=== PATIENT | female | born 1940 | race Two or more races ===

== ENCOUNTER 2017-01-10 17:31 | Inpatient (IN) | payer OTHER, MEDICAID ==
[~2017-01-10] VITALS: Ht 157.5 cm; Wt 90.3 kg
[~2017-01-10 17:31] MED LIST: AMLO10TA2 PO; INSULIN
[2017-01-10 18:22] LABS: Basophils # (auto) 0 uL; Basophils % (auto) 0.2 % (0.0-2.0); CONDITION Y; Eosinophils # (auto) 0.1 uL; Eosinophils % (auto) 0.3 % (0.0-7.0); Hematocrit 41.1 % (36.0-46.0); Hemoglobin 13.5 g/dL (12.2-16.2); Lymphocytes # (auto) 3.3 uL; Mean Corpuscular Hemoglobin 27.8 pg (28.0-32.0); Mean Corpuscular Hgb Conc. 32.8 g/dL (32.0-36.0); Mean Corpuscular Volume 84.7 fL (80.0-100.0); Mean Platelet Volume 10.3 fL (7.4-10.4); Monocytes # (auto) 0.7 uL; Monocytes % (auto) 4.2 % (0.0-12.0); Neutrophils # (auto) 13.2 uL; Neutrophils % (auto) 76.3 % (37.0-80.0); Platelet Count (auto) 390 10^3/uL (140-450); Red Cell Distribution Width 15.4 % (11.6-16.0); White Blood Cell 17.3 10^3/uL (4.4-10.8)
[2017-01-10 18:31] LABS: Albumin 3.6 g/dL (3.4-5.0); Anion Gap 10 (5-15); Aspartate Aminotransferase 19 U/L (15-37); BUN/Creatinine Ratio 24.8; Blood Urea Nitrogen 30 mg/dL (7-18); Calcium 9.1 mg/dL (8.5-10.1); Carbon Dioxide 25 mmol/L (21-32); Chloride 105 mmol/L (98-107); GFR African American 56 mL/min; GFR Non-African American 46 mL/min; Glucose 293 mg/dL (74-106); Magnesium 2.5 mg/dL (1.6-2.6); Potassium 4.6 mmol/L (3.5-5.1); Sodium 140 mmol/L (136-145)
[2017-01-10 18:36] LABS: Alkaline Phosphatase 111 U/L (45-117); Bilirubin, Total 0.5 mg/dL (0.2-1.0); Total Protein 7.3 g/dL (6.4-8.2)
[2017-01-11] MEDS ORDERED: ONDANSETRON HCL 4 MG/2 ML VIAL IV ONE (01:30)
[2017-01-11] MEDS ORDERED: SODIUM CHLORIDE 0.9% 1,000 ML IV ONE (01:30)
[2017-01-11] MEDS ORDERED: MORPHINE SULF INJ 2 MG/ML SYRINGE 1ML IV ONE (01:30)
[2017-01-11] MEDS ORDERED: metroNIDAZOLE 500MG/100ML 100 ML IV ONE ×2 (06:30)
[2017-01-11] MEDS ORDERED: MORPHINE SULF INJ 2 MG/ML SYRINGE 1ML IV PRN (08:00)
[2017-01-11] MEDS ORDERED: NITROGLYCERIN 0.4 MG SL TAB SL PRN (08:00)
[2017-01-11] MEDS ORDERED: ONDANSETRON HCL 4 MG/2 ML VIAL IV PRN (08:15)
[2017-01-11] MEDS ORDERED: DEXTROSE (50%) 50ML SYRG IV PRN (08:15)
[2017-01-11] MEDS ORDERED: GABA-497 PO (08:16)
[2017-01-11] MEDS ORDERED: ESCI20TA51 PO (08:16)
[2017-01-11] MEDS: SOD CHL 0.45% 1,000 ML IV SCH ×2 (08:40→21:20)
[2017-01-11 08:41] LABS: Basophils # (auto) 0.1 uL; Basophils % (auto) 0.4 % (0.0-2.0); CONDITION Y; Eosinophils # (auto) 0.1 uL; Eosinophils % (auto) 0.7 % (0.0-7.0); Hematocrit 35.3 % (36.0-46.0); Hemoglobin 11.7 g/dL (12.2-16.2); Lymphocytes # (auto) 4.4 uL; Mean Corpuscular Hemoglobin 28.2 pg (28.0-32.0); Mean Corpuscular Hgb Conc. 33.1 g/dL (32.0-36.0); Mean Corpuscular Volume 85.2 fL (80.0-100.0); Mean Platelet Volume 9.9 fL (7.4-10.4); Monocytes # (auto) 1.2 uL; Monocytes % (auto) 7.2 % (0.0-12.0); Neutrophils % (auto) 65.7 % (37.0-80.0); Platelet Count (auto) 307 10^3/uL (140-450); White Blood Cell 16.8 10^3/uL (4.4-10.8)
[2017-01-11 08:58] LABS: Albumin 3.1 g/dL (3.4-5.0); BUN/Creatinine Ratio 25.9; Bilirubin, Total 0.4 mg/dL (0.2-1.0); Potassium 4.5 mmol/L (3.5-5.1); Total Protein 6.3 g/dL (6.4-8.2)
[2017-01-11 09:04] LABS: INR 0.96 (0.9-1.15); Prothrombin Time 10.5 sec (9.37-12.3)
[2017-01-11] MEDS ORDERED: CIPROFLOXACIN 400MG/200ML 200 ML IV SCH (10:00)
[2017-01-11] MEDS ORDERED: PATIENTS OWN MEDICATION (Amlodipine Besylate 1 TAB) PO SCH ×2 (10:00)
[2017-01-11] MEDS ORDERED: metroNIDAZOLE 500MG/100ML 100 ML IV SCH ×2 (10:00→12:00)
[2017-01-11 10:09] LABS: Urine Bilirubin Negative (Negative); Urine Blood TRACE /uL (Negative); Urine Color Yellow (Yellow); Urine Glucose 2+ mg/dL (Normal); Urine Ketone TRACE (Negative); Urine Nitrite Negative (Negative); Urine RBC 42 /hpf (0 - 4); Urine Squamous Epithelial Cell MOD /hpf (<5)
[2017-01-11] MEDS: metroNIDAZOLE 500MG/100ML 100 ML IV SCH ×2 (10:30→21:59)
[2017-01-11] MEDS: amLODIPine BESYLATE 5 MG TAB PO SCH (10:30)
[2017-01-11] MEDS: InsuLIN REG 1unit/0.01ml Soln (100units/ml) SC SCH ×3 (12:00→23:57)
[2017-01-11] MEDS: ACCU-CHEK COMFORT CURVE STRIP VI SCH ×3 (12:00→23:58)
[2017-01-11] MEDS ORDERED: INSU100I4 SC ×2 (13:24)
[2017-01-11 17:26] VITALS: BP 131/58
[2017-01-11 18:00] LABS: Basophils # (auto) 0 uL; Basophils % (auto) 0.3 % (0.0-2.0); CONDITION Y; Eosinophils # (auto) 0.2 uL; Eosinophils % (auto) 1.3 % (0.0-7.0); Hemoglobin 12.5 g/dL (12.2-16.2); Lymphocytes # (auto) 3.9 uL; Lymphocytes % (auto) 26.9 % (10.0-50.0); Mean Corpuscular Hemoglobin 28.1 pg (28.0-32.0); Mean Corpuscular Hgb Conc. 32.9 g/dL (32.0-36.0); Mean Corpuscular Volume 85.4 fL (80.0-100.0); Mean Platelet Volume 9.6 fL (7.4-10.4); Monocytes % (auto) 6.8 % (0.0-12.0); Neutrophils # (auto) 9.3 uL; Neutrophils % (auto) 64.7 % (37.0-80.0); Platelet Count (auto) 346 10^3/uL (140-450); Red Cell Distribution Width 15.1 % (11.6-16.0); White Blood Cell 14.4 10^3/uL (4.4-10.8)
[2017-01-11] MEDS: CIPROFLOXACIN 400MG/200ML 200 ML IV SCH ×2 (18:07→23:51)
[2017-01-11 22:00] VITALS: BP 137/57
[2017-01-12 05:00] VITALS: BP 131/57
[2017-01-12 05:27] LABS: BUN/Creatinine Ratio 25.7; Calcium 7.7 mg/dL (8.5-10.1); Magnesium 2.4 mg/dL (1.6-2.6); Potassium 3.9 mmol/L (3.5-5.1)
[2017-01-12] MEDS: ACCU-CHEK COMFORT CURVE STRIP VI SCH ×2 (05:47→12:00)
[2017-01-12] MEDS: InsuLIN REG 1unit/0.01ml Soln (100units/ml) SC SCH ×2 (05:47→12:00)
[2017-01-12 05:48] LABS: Basophils # (auto) 0 uL; Basophils % (auto) 0.3 % (0.0-2.0); CONDITION Y; Eosinophils # (auto) 0.3 uL; Eosinophils % (auto) 2.3 % (0.0-7.0); Hematocrit 36.6 % (36.0-46.0); Lymphocytes # (auto) 3.3 uL; Lymphocytes % (auto) 26.9 % (10.0-50.0); Mean Corpuscular Hemoglobin 28.2 pg (28.0-32.0); Mean Corpuscular Hgb Conc. 32.8 g/dL (32.0-36.0); Mean Corpuscular Volume 86.1 fL (80.0-100.0); Mean Platelet Volume 10.1 fL (7.4-10.4); Monocytes # (auto) 0.9 uL; Monocytes % (auto) 7.5 % (0.0-12.0); Neutrophils # (auto) 7.8 uL; Platelet Count (auto) 270 10^3/uL (140-450); Red Cell Distribution Width 15.1 % (11.6-16.0); White Blood Cell 12.3 10^3/uL (4.4-10.8)
[2017-01-12 08:00] VITALS: BP 137/69
[2017-01-12] MEDS: metroNIDAZOLE 500MG/100ML 100 ML IV SCH (10:09)
[2017-01-12] MEDS: amLODIPine BESYLATE 5 MG TAB PO SCH (10:10)
[2017-01-12] MEDS: SOD CHL 0.45% 1,000 ML IV SCH (10:40)
[2017-01-12 12:00] VITALS: BP 163/70
[2017-01-12 14:16] VITALS: BP 137/69
== END 2017-01-12 15:50 | disposition home health service (06) | DRG 388 ==
LOC: ER 17:34 → OVERFLOW 17:35 → EAST 01-11 12:02 → CENTRAL 01-11 14:20
PROVIDERS: ADMIT Internal Medicine; ATTEND Internal Medicine
DX: K56.7 Ileus, unspecified (principal); N17.0 Acute kidney failure with tubular necrosis; N39.0 Urinary tract infection, site not specified; K52.9 Noninfective gastroenteritis and colitis, unspecified; N18.3 Chronic kidney disease, stage 3 (moderate); E11.22 Type 2 diabetes mellitus with diabetic chronic kidney disease; F03.90 Unspecified dementia, unspecified severity, without behavioral disturbance, psychotic disturbance, mood disturbance, and anxiety; E11.40 Type 2 diabetes mellitus with diabetic neuropathy, unspecified; E11.65 Type 2 diabetes mellitus with hyperglycemia; E86.0 Dehydration; F32.9 Major depressive disorder, single episode, unspecified; I12.9 Hypertensive chronic kidney disease with stage 1 through stage 4 chronic kidney disease, or unspecified chronic kidney disease; K44.9 Diaphragmatic hernia without obstruction or gangrene; M81.0 Age-related osteoporosis without current pathological fracture; F41.9 Anxiety disorder, unspecified; G89.29 Other chronic pain; M54.9 Dorsalgia, unspecified; Z79.4 Long term (current) use of insulin; Z79.899 Other long term (current) drug therapy; Z82.49 Family history of ischemic heart disease and other diseases of the circulatory system; Z83.3 Family history of diabetes mellitus; Z86.73 Personal history of transient ischemic attack (TIA), and cerebral infarction without residual deficits; Z90.49 Acquired absence of other specified parts of digestive tract; Z90.710 Acquired absence of both cervix and uterus
CPT/HCPCS: 36415; 71010; 74176; 80048; 80053; 81001; 82270; 82962; 83036; 83690; 83735; 84484; 85025; 85610; 93005; 94761; 96361; 96365; 96366; 96375; J1815; J2405; J3490

== ENCOUNTER 2018-05-01 07:29 | Emergency (ER) | payer MEDICARE, MEDICAID ==
[~2018-05-01] VITALS: Ht 162.6 cm; Wt 68.0 kg
[~2018-05-01 07:29] MED LIST changes: +AMLO10TA12 PO; -AMLO10TA2 PO; +ESCI20TA51 PO; +GABA300C10 PO; +INSU100I4 SC; -INSULIN
[2018-05-01] MEDS ORDERED: ALPRAZolam 0.5 MG TAB PO ONE (08:15)
[2018-05-01 08:55] LABS: Basophils # (auto) 0.1 uL; Basophils % (auto) 0.5 % (0.0-2.0); Eosinophils # (auto) 0.2 uL; Eosinophils % (auto) 1.4 % (0.0-7.0); Hematocrit 41.1 % (36.0-46.0); Hemoglobin 13.5 g/dL (12.2-16.2); Lymphocytes # (auto) 3.5 uL; Lymphocytes % (auto) 31.8 % (10.0-50.0); Mean Corpuscular Hemoglobin 28.4 pg (28.0-32.0); Mean Corpuscular Hgb Conc. 32.8 g/dL (32.0-36.0); Mean Corpuscular Volume 86.4 fL (80.0-100.0); Monocytes # (auto) 0.8 uL; Monocytes % (auto) 6.9 % (0.0-12.0); Neutrophils # (auto) 6.5 uL; Neutrophils % (auto) 59.4 % (37.0-80.0); Platelet Count (auto) 283 10^3/uL (140-450); Red Blood Cells 4.76 10^6/uL (4.0-5.20); Red Cell Distribution Width 14.5 % (11.8-14.3); White Blood Cell 10.9 10^3/uL (4.4-10.8)
[2018-05-01 09:11] LABS: Urine Bacteria NONE SEEN /hpf (None Seen); Urine Blood Negative /uL (Negative); Urine WBC <1 /hpf (0 - 5)
[2018-05-01 09:13] LABS: Albumin 3.8 g/dL (3.4-5.0); Anion Gap 6 (5-15); Blood Urea Nitrogen 13 mg/dL (7-18); Calcium 9.3 mg/dL (8.5-10.1); Carbon Dioxide 26 mmol/L (21-32); Chloride 109 mmol/L (98-107); Glucose 106 mg/dL (74-106); Magnesium 2.5 mg/dL (1.6-2.6); Potassium 4.9 mmol/L (3.5-5.1); Sodium 141 mmol/L (136-145)
[2018-05-01 09:14] LABS: BUN/Creatinine Ratio 16.7; GFR African American 92 mL/min; GFR Non-African American 76 mL/min
[2018-05-01 09:26] LABS: Alanine Aminotransferase 26 U/L (13-56); Alkaline Phosphatase 130 U/L (45-117); Aspartate Aminotransferase 20 U/L (15-37); Bilirubin, Total 0.4 mg/dL (0.2-1.0); Total Protein 7.5 g/dL (6.4-8.2)
[2018-05-01 10:08] VITALS: BP 111/52
== END 2018-05-01 11:17 | disposition home or self-care (01) ==
LOC: EDBD 07:29 → ER 07:31
DX: F43.21 Adjustment disorder with depressed mood (principal); E03.9 Hypothyroidism, unspecified; F41.8 Other specified anxiety disorders; F32.9 Major depressive disorder, single episode, unspecified; E11.9 Type 2 diabetes mellitus without complications; I10 Essential (primary) hypertension; Z90.49 Acquired absence of other specified parts of digestive tract; Z79.4 Long term (current) use of insulin; Z79.899 Other long term (current) drug therapy; Z86.73 Personal history of transient ischemic attack (TIA), and cerebral infarction without residual deficits; Z90.710 Acquired absence of both cervix and uterus
CPT/HCPCS: 36415; 71046; 80053; 81001; 83735; 84443; 84484; 85025; 93005

== ENCOUNTER 2018-08-21 09:54 | Emergency (ER) | payer MEDICARE, MEDICAID ==
[~2018-08-21] VITALS: Ht 160 cm; Wt 68.0 kg
[2018-08-21 10:33] LABS: Urine WBC None Seen /hpf (0 - 5)
[2018-08-21 11:14] LABS: Basophils # (auto) 0.1 uL; Basophils % (auto) 0.7 % (0.0-2.0); Eosinophils # (auto) 0.1 uL; Eosinophils % (auto) 0.9 % (0.0-7.0); Hematocrit 42.6 % (36.0-46.0); Lymphocytes # (auto) 2.5 uL; Lymphocytes % (auto) 21.8 % (10.0-50.0); Mean Corpuscular Hemoglobin 28.5 pg (28.0-32.0); Mean Corpuscular Hgb Conc. 32.7 g/dL (32.0-36.0); Mean Corpuscular Volume 87.2 fL (80.0-100.0); Monocytes # (auto) 0.6 uL; Monocytes % (auto) 5.2 % (0.0-12.0); Neutrophils % (auto) 71.4 % (37.0-80.0); Platelet Count (auto) 231 10^3/uL (140-450); Red Blood Cells 4.89 10^6/uL (4.0-5.20); Red Cell Distribution Width 13.8 % (11.8-14.3); White Blood Cell 11.3 10^3/uL (4.4-10.8)
[2018-08-21 11:19] LABS: Alanine Aminotransferase 27 U/L (13-56); Albumin 3.9 g/dL (3.4-5.0); Anion Gap 6 (5-15); Aspartate Aminotransferase 21 U/L (15-37); BUN/Creatinine Ratio 19.8; Blood Urea Nitrogen 17 mg/dL (7-18); Calcium 9.3 mg/dL (8.5-10.1); Carbon Dioxide 26 mmol/L (21-32); Chloride 107 mmol/L (98-107); GFR African American 83 mL/min; GFR Non-African American 68 mL/min; Glucose 172 mg/dL (74-106); Potassium 4.1 mmol/L (3.5-5.1); Sodium 139 mmol/L (136-145)
[2018-08-21 11:24] LABS: Alkaline Phosphatase 156 U/L (45-117); Bilirubin, Total 0.6 mg/dL (0.2-1.0); Total Protein 7.5 g/dL (6.4-8.2)
[2018-08-21 11:26] LABS: Urine Bacteria FEW /hpf (None Seen); Urine Blood Negative /uL (Negative); Urine Budding Yeast MODERATE /hpf (None Seen); Urine Specific Gravity 1.009 (1.001-1.035)
[2018-08-21] MEDS ORDERED: SODIUM CHLORIDE 0.9% 500 ML IVB ONE (11:44)
[2018-08-21] MEDS ORDERED: SODIUM CHLORIDE 0.9% 1,000 ML IV ONE (11:44)
[2018-08-21] MEDS ORDERED: FUROSEMIDE 20 MG/2 ML VIAL IV ONE (11:45)
[2018-08-21] MEDS ORDERED: LORazepam 2MG/ML-1ML VIAL IV ONE (11:45)
[2018-08-21] MEDS ORDERED: MECLIZINE HCL 25 MG TAB PO ONE (11:45)
[2018-08-21 16:30] VITALS: BP 130/72
== END 2018-08-21 16:56 | disposition home or self-care (01) ==
LOC: ER 09:54 → EDBD 09:54 → ER 16:56
DX: R42 Dizziness and giddiness (principal); F32.9 Major depressive disorder, single episode, unspecified; E11.65 Type 2 diabetes mellitus with hyperglycemia; R45.851 Suicidal ideations; I10 Essential (primary) hypertension; F41.9 Anxiety disorder, unspecified; Z86.73 Personal history of transient ischemic attack (TIA), and cerebral infarction without residual deficits; Z98.51 Tubal ligation status; Z90.710 Acquired absence of both cervix and uterus; Z90.49 Acquired absence of other specified parts of digestive tract
CPT/HCPCS: 36415; 70450; 71045; 80053; 81001; 83735; 84484; 85025; 93005; 94761; 96361; 96374; 96375; 99284; J1940; J2060; J7030; J7040; J8597

== ENCOUNTER 2019-12-29 02:19 | Inpatient (IN) | payer OTHER, MEDICAID ==
[~2019-12-29] VITALS: Ht 157.5 cm; Wt 70.1 kg
[~2019-12-29 02:19] MED LIST changes: -AMLO10TA12 PO; +AMLO10TA13 PO
[2019-12-29 03:30] LABS: Basophils # (auto) 0.1 10 ^3/uL (0-0.2); Basophils % (auto) 0.7 % (0.0-2.0); Eosinophils # (auto) 0.1 10 ^3/uL (0-0.8); Eosinophils % (auto) 1.4 % (0.0-7.0); Hematocrit 38.6 % (36.0-46.0); Hemoglobin 12.8 g/dL (12.2-16.2); Lymphocytes # (auto) 2.8 10 ^3/uL (0.4-5.4); Lymphocytes % (auto) 28.3 % (10.0-50.0); Mean Corpuscular Hemoglobin 28.8 pg (28.0-32.0); Mean Corpuscular Hgb Conc. 33.3 g/dL (32.0-36.0); Mean Corpuscular Volume 86.6 fL (80.0-100.0); Monocytes # (auto) 0.8 10 ^3/uL (0-1.3); Monocytes % (auto) 7.6 % (0.0-12.0); Neutrophils # (auto) 6.2 10 ^3/uL (1.6-8.6); Nucleated Red Blood Cells % 0.2 %; Platelet Count (auto) 268 10^3/uL (140-450); Red Blood Cells 4.45 10^6/uL (4.0-5.20); Red Cell Distribution Width 13.4 % (11.8-14.3)
[2019-12-29 03:47] LABS: Albumin 3.6 g/dL (3.4-5.0); Potassium 3.9 mmol/L (3.5-5.1)
[2019-12-29 03:50] LABS: BUN/Creatinine Ratio 15.3; Bilirubin, Total 0.4 mg/dL (0.2-1.0); Total Protein 7.5 g/dL (6.4-8.2)
[2019-12-29] MEDS ORDERED: SODIUM CHLORIDE 0.9% 1,000 ML IV ONE (05:30)
[2019-12-29] MEDS ORDERED: InsuLIN REG 1unit/0.01ml Soln (100units/ml) IV ONE (05:30)
[2019-12-29] MEDS ORDERED: HYDROcodone-ACET 5/325MG TAB PO PRN (05:45)
[2019-12-29] MEDS ORDERED: DOCUSATE SOD 100 MG CAP PO PRN (05:45)
[2019-12-29] MEDS ORDERED: ONDANSETRON HCL 4 MG/2 ML VIAL IV PRN (05:45)
[2019-12-29] MEDS ORDERED: ACETAMINOPHEN 325 MG TAB PO PRN (05:45)
[2019-12-29] MEDS ORDERED: DEXTROSE (50%) 50ML SYRG IV PRN (05:45)
[2019-12-29] MEDS ORDERED: TRAZ100T3 PO (10:19)
[2019-12-29] MEDS ORDERED: OXCA150T3 PO (10:19)
[2019-12-29] MEDS ORDERED: CHOL200021 PO (10:19)
[2019-12-29] MEDS ORDERED: MEMA1TAB3 PO (10:19)
[2019-12-29] MEDS ORDERED: OXYB5TAB61 PO (10:19)
[2019-12-29] MEDS ORDERED: ASPI-266 PO (10:19)
[2019-12-29] MEDS ORDERED: BUPR100T14 PO (10:19)
[2019-12-29] MEDS ORDERED: ALEN1TAB32 PO (10:19)
[2019-12-29] MEDS ORDERED: GLIM-5 PO (10:19)
[2019-12-29] MEDS ORDERED: DONE10TA40 PO (10:20)
[2019-12-29] MEDS: ACCU-CHEK COMFORT CURVE STRIP VI SCH ×4 (10:22→20:15)
[2019-12-29] MEDS ORDERED: CYAN1TAB14 PO (10:24)
[2019-12-29] MEDS ORDERED: ASCO100076 PO (10:24)
[2019-12-29] MEDS ORDERED: FOLI400T34 PO (10:24)
[2019-12-29] MEDS: InsuLIN REG 1unit/0.01ml Soln (100units/ml) SC SCH ×4 (10:26→20:00)
[2019-12-29] MEDS: SODIUM CHLORIDE 0.9% 1,000 ML IV SCH ×3 (10:28→16:10)
--- NOTE | 2019-12-29 14:39 | NUR ---
MS admit from ER CAROLE VIVAR M admitted to tele/MS after SBAR received.came in with chief c/o Hyperglycemia,uncontrolled diabetes.Awake,alert,oriented no distress no discomfort.IV heplocl toleft AC g#20.Patient oriented to primary RN, unit, room, bed, and unit policies regarding patient care and visiting hours. Patient weighed by bedscale and encouraged to call if they need something. All questions and concerns addressed, patient verbalized understanding.
--- NOTE | 2019-12-29 15:30 | NUR ---
MD VISIT DR. RECINOS[PRICK HERE TO SEE AND EXAMINED PATIENT RECEIVED ORDERS
--- NOTE | 2019-12-29 15:44 | NUR ---
CLARIFIED WITH DR. NETTLES RE IVF RATE OF 200CC/HR,RECEIVED ORDER TO DECREASED RATE TO 100 CC/HR
[2019-12-29] MEDS ORDERED: cefTRIAXone 1GM/50ML D5W 50 ML IV ONE (15:45)
[2019-12-29] MEDS ORDERED: PAR20T GT (15:46)
--- NOTE | 2019-12-29 16:00 | NUR ---
SPECIMEN CUP PROVIDED INSTRUCTED OF NEEDING URINE SPECIMEN WHEN AVAILABLE,VERBALIZED UNDERSTANDING.
--- NOTE | 2019-12-29 16:10 | NUR ---
BLOOD SUGAR 55,ASYMPTOMATIC,N DIAPHORESIS OR DIZZINESS, PATIENT GIVEN 2, 8 OZ. OF ORANGE JUICE,INSTRUCTED TO FINISH
--- NOTE | 2019-12-29 16:50 | NUR ---
VITAL SIGNS TAKEN BP 134/85,ROOM AIR SAT 96%,RR18,HR86,TEMP:99.0
[2019-12-29 17:00] VITALS: BP 134/85
--- NOTE | 2019-12-29 19:19 | NUR ---
STATUS UNCHANGED,REPORT AND CONTINUATION OF CARE GIVEN TO INCOMING NOC SHIFT RN.
--- NOTE | 2019-12-29 21:00 | NUR ---
pt IV removed per request. Site red, no swelling noted. Pt is declining new IV at tis time. Will attempt shortly
[2019-12-29 22:00] VITALS: BP 161/89
--- NOTE | 2019-12-29 23:30 | NUR ---
pt admitted on day shift but nurse was unable to chart any of her belongings. pt had 5 rings (yellow metal) one with white stones, 2 chains one whit metal with whit medal crucifix, the other yellow metal with yellow metal crucifix, 4 pairs of earing, 3 pair yellow metal hoops and one white metal with various colored stones, 4 bracelets, 2 yellow metal and 2 white metal. pt had id cards and a check book. Pt did not want this keno writer / runner to lock any of her belongings in the safe. Charge nurse notified, and is aware that pt is keeping all of her belongings at bedside. Pt had several quarters but did not want this keno writer / runner to look and no other money noted. property sheet filled out and signed by pt and this keno writer / runner.
[2019-12-30 00:09] LABS: Urine Bacteria MOD /hpf (None Seen); Urine Budding Yeast MANY /hpf (None Seen); Urine WBC 85 /hpf (0 - 5)
[2019-12-30 00:10] LABS: Urine Blood TRACE /uL (Negative)
[2019-12-30 00:19] LABS: Amphetamine Screen, Urine NEGATIVE (NEGATIVE); Barbiturate Scree,Urine NEGATIVE (NEGATIVE); Benzodiazephine Screen, Urine NEGATIVE (NEGATIVE); Cannabinoid Screen, Urine NEGATIVE (NEGATIVE); Cocaine Screen, Urine NEGATIVE (NEGATIVE); Opiate Scree,Urine NEGATIVE (NEGATIVE); Phencyclidine Screen, Urine NEGATIVE (NEGATIVE)
[2019-12-30] MEDS: ACCU-CHEK COMFORT CURVE STRIP VI SCH ×6 (00:21→20:00)
[2019-12-30] MEDS: InsuLIN REG 1unit/0.01ml Soln (100units/ml) SC SCH ×6 (00:22→20:00)
[2019-12-30 05:00] VITALS: BP 156/72
[2019-12-30] MEDS: SODIUM CHLORIDE 0.9% 1,000 ML IV SCH ×3 (05:07→21:14)
[2019-12-30 06:39] LABS: Basophils # (auto) 0.1 10 ^3/uL (0-0.2); Basophils % (auto) 0.7 % (0.0-2.0); Eosinophils # (auto) 0.1 10 ^3/uL (0-0.8); Eosinophils % (auto) 0.6 % (0.0-7.0); Hematocrit 40.3 % (36.0-46.0); Hemoglobin 12.9 g/dL (12.2-16.2); Lymphocytes # (auto) 2.6 10 ^3/uL (0.4-5.4); Mean Corpuscular Hemoglobin 27.7 pg (28.0-32.0); Mean Corpuscular Volume 86.8 fL (80.0-100.0); Monocytes # (auto) 0.7 10 ^3/uL (0-1.3); Monocytes % (auto) 5.2 % (0.0-12.0); Neutrophils # (auto) 10.2 10 ^3/uL (1.6-8.6); Neutrophils % (auto) 74.5 % (37.0-80.0); Nucleated Red Blood Cells % 0.1 %; Platelet Count (auto) 272 10^3/uL (140-450); Red Blood Cells 4.64 10^6/uL (4.0-5.20); Red Cell Distribution Width 13.7 % (11.8-14.3); White Blood Cell 13.8 10^3/uL (4.4-10.8)
[2019-12-30 06:53] LABS: INR 1.03 (0.9-1.15)
[2019-12-30 07:03] LABS: BUN/Creatinine Ratio 17.9; Calcium 8.6 mg/dL (8.5-10.1); Potassium 3.7 mmol/L (3.5-5.1)
--- NOTE | 2019-12-30 07:30 | NUR ---
Opening Shift Note Assuming care of patient at this time. Patient is awake and alert. Patient denies pain. Patient shows no signs or symptoms of distress or shortness of breath. Bed is locked and lowered with side rails up x2. Instructed patient on the plan of care for today and to call for assistance as needed. Call light within reach. Will continue to round hourly and as needed.
[2019-12-30] MEDS: cefTRIAXone 1GM/50ML D5W 50 ML IV SCH (08:35)
[2019-12-30 09:00] VITALS: BP 152/82
[2019-12-30 12:48] VITALS: BP 162/60
--- NOTE | 2019-12-30 13:19 | NUR ---
Assessment Regarding social service consult for homeless. Patient is a 79-year-old alert and oriented. Patient primary language is Arabic. Per patient she lived with her son Krzysztof and daughter in law Alis. Patient informed me she has been staying in the streets for the past 7 days. Patient informed me she receives SSI of an amount of 2,000. Patient refusing placement options and resources provided. Per patient she does not know where she would like to go upon discharge. Provided information to clothes closet and meal prior to discharge. Patient refused. Offered pt taxi voucher within 30 miles and pt agreed. Completed homeless assessment and patient signed homeless waiver. Will follow-up and provide intervention as appropriate. Addendum: 12/30/19 at 1321 by ALICJA LANDRY Amended: Links added.
--- NOTE | 2019-12-30 15:33 | NUR ---
re-assessment Per ss consult homeless and needs placement. Per Mahnaz BLACKMON patient has SSI of 1200.00 per month. Patient agrees to board and care or room and board. order for placement has been sent to [facility] animal nursery worker for [facility] non profit for placement. Waiting tower control operator back now. Addendum: 12/30/19 at 1541 by Migdalia Morales Amended: Links added.
[2019-12-30 17:00] VITALS: BP 113/63
--- NOTE | 2019-12-30 19:26 | NUR ---
Closing Shift Note Patient resting in bed. No distress. Will endorse care to the night stocker RN.
[2019-12-30 22:00] VITALS: BP 140/70
[2019-12-31 05:00] VITALS: BP 163/71
[2019-12-31] MEDS: InsuLIN REG 1unit/0.01ml Soln (100units/ml) SC SCH ×5 (05:12→16:00)
[2019-12-31] MEDS: SODIUM CHLORIDE 0.9% 1,000 ML IV SCH ×2 (05:13→17:45)
[2019-12-31] MEDS: ACCU-CHEK COMFORT CURVE STRIP VI SCH ×5 (05:13→16:48)
[2019-12-31 06:29] VITALS: BP 157/68
[2019-12-31 07:38] LABS: Basophils # (auto) 0.1 10 ^3/uL (0-0.2); Basophils % (auto) 0.9 % (0.0-2.0); Eosinophils # (auto) 0.1 10 ^3/uL (0-0.8); Eosinophils % (auto) 0.7 % (0.0-7.0); Hematocrit 36.7 % (36.0-46.0); Hemoglobin 12.1 g/dL (12.2-16.2); Lymphocytes # (auto) 2.8 10 ^3/uL (0.4-5.4); Lymphocytes % (auto) 24.2 % (10.0-50.0); Mean Corpuscular Hemoglobin 28.3 pg (28.0-32.0); Mean Corpuscular Volume 85.7 fL (80.0-100.0); Monocytes # (auto) 0.7 10 ^3/uL (0-1.3); Monocytes % (auto) 6.2 % (0.0-12.0); Neutrophils # (auto) 7.7 10 ^3/uL (1.6-8.6); Platelet Count (auto) 265 10^3/uL (140-450); Red Blood Cells 4.29 10^6/uL (4.0-5.20); Red Cell Distribution Width 13.9 % (11.8-14.3); White Blood Cell 11.4 10^3/uL (4.4-10.8)
[2019-12-31 07:54] LABS: Potassium 3.4 mmol/L (3.5-5.1)
[2019-12-31 07:59] LABS: BUN/Creatinine Ratio 17.1; Calcium 8.3 mg/dL (8.5-10.1)
[2019-12-31] MEDS: cefTRIAXone 1GM/50ML D5W 50 ML IV SCH (08:47)
[2019-12-31 09:00] VITALS: BP 124/60
[2019-12-31 12:42] VITALS: BP 140/89
[2019-12-31] MEDS ORDERED: POTASSIUM EFFERVESENT TAB 25 MEQ PO ONE (13:15)
--- NOTE | 2019-12-31 15:01 | NUR ---
D/C planning Per SW II Migdalia patient has been accepted to [facility]. faxed clinical information to facility ) Ph:( [phone]). Patient will be going to room 9b. Informed NEYMAR Joya this morning COVID test is needed before patient can be transfer to facility. Informed NEMYAR Joya when results come in to fax results to [facility]. Faxed transportation form request to [facility] requesting shredder picker time to be at 19:00 via [employer]. Per Mary with [facility], transportation has been arrange with [facility] ) ETA 19:00. Informed NEYMAR Joya.
[2019-12-31 16:56] VITALS: BP 152/70
--- NOTE | 2019-12-31 17:45 | NUR ---
Discharge Discharge instructions given as ordered. Encourage to follow up with PMD as instructed. All questions and concerns addressed. Patient verbalized understanding. Medication reconciliation form completed and copy given to patient. Home medications held in Pharmacy returned to patient, and needed vaccines given. IV removed with catheter intact, pressure dressing applied. Patient taken to vehicle via wheelchair with all personal belongings, accompanied by staff, home oxygen with patient currently running at 4L. No distress noted at time of departure. Addendum: 12/31/19 at 1915 by BLAYNE ARMSTRONG RN RN wrong patient
--- NOTE | 2019-12-31 18:00 | NUR ---
Fax to [facility] Faxed covid result to [facility] at this time.
[2019-12-31 18:09] VITALS: BP 152/70
--- NOTE | 2019-12-31 19:15 | NUR ---
Discharge Discharge instructions given as ordered. Encourage to follow up with PMD as instructed. All questions and concerns addressed. Patient verbalized understanding. Medication reconciliation form completed and copy given to patient. Home medications held in Pharmacy returned to patient. IVs removed with catheter intact, pressure dressing applied. All belongings with patient. Per Adriana at [facility], no report needed. Ambulance personnel to take patient to [facility]. No distress noted at time of departure.
== END 2019-12-31 19:02 | disposition hospice, inpatient (51) | DRG 638 ==
LOC: EDBD 02:19 → ER 02:21 → OVERFLOW 02:22 → WEST WING 14:40
PROVIDERS: ADMIT Hospitalist; ATTEND Internal Medicine
DX: E11.65 Type 2 diabetes mellitus with hyperglycemia (principal); N39.0 Urinary tract infection, site not specified; T38.3X6A Underdosing of insulin and oral hypoglycemic [antidiabetic] drugs, initial encounter; R62.7 Adult failure to thrive; F41.9 Anxiety disorder, unspecified; I10 Essential (primary) hypertension; F32.9 Major depressive disorder, single episode, unspecified; Z59.0 Homelessness; Z86.73 Personal history of transient ischemic attack (TIA), and cerebral infarction without residual deficits; Z90.49 Acquired absence of other specified parts of digestive tract; Z98.51 Tubal ligation status; Z90.710 Acquired absence of both cervix and uterus; Z82.49 Family history of ischemic heart disease and other diseases of the circulatory system; Z81.1 Family history of alcohol abuse and dependence; Z79.4 Long term (current) use of insulin; Z11.59 Encounter for screening for other viral diseases
CPT/HCPCS: 36415; 80048; 80053; 80307; 81001; 82962; 83036; 84443; 85025; 85610; 96361; 96374; G0378; J0696; J1815

== ENCOUNTER 2020-01-17 12:21 | Emergency (ER) | payer OTHER, MEDICAID ==
[~2020-01-17] VITALS: Ht 154.9 cm; Wt 63.5 kg
[~2020-01-17 12:21] MED LIST changes: +ALEN1TAB32 PO; -AMLO10TA13 PO; +ASCO100076 PO; +ASPI-266 PO; +BUPR100T14 PO; +CHOL200021 PO; +CYAN1TAB14 PO; +DONE10TA40 PO; -ESCI20TA51 PO; +FOLI400T34 PO; -GABA300C10 PO; +GLIM-5 PO; -INSU100I4 SC; +MEMA1TAB3 PO; +OXCA150T3 PO; +OXYB5TAB61 PO; +PAR20T GT; +TRAZ100T3 PO
[2020-01-17] MEDS ORDERED: MECLIZINE HCL 25 MG TAB PO ONE (16:00)
[2020-01-17 23:00] VITALS: BP 151/63
== END 2020-01-17 23:32 | disposition home or self-care (01) ==
LOC: ER 12:21 → EDBD 12:21 → ER 23:32
DX: S09.90XA Unspecified injury of head, initial encounter (principal); R42 Dizziness and giddiness; E11.9 Type 2 diabetes mellitus without complications; I10 Essential (primary) hypertension; Z90.49 Acquired absence of other specified parts of digestive tract; Z79.899 Other long term (current) drug therapy; W20.0XXA Struck by falling object in cave-in, initial encounter; Y93.H3 Activity, building and construction; Y92.89 Other specified places as the place of occurrence of the external cause; Y99.8 Other external cause status
CPT/HCPCS: 70450; 71045; 99285; J8597